=== PATIENT | male | born 1985 | race Caucasian/White ===

== ENCOUNTER → 2017-07-22 11:50 | Outpatient (CLI) | payer BC, SELFPAY ==
[2017-07-22 11:57] LABS: Adenovirus,PCR Not Detected (NotDetected); Bordetella Pertussis Not Detected (NotDetected); Chlamydophila Pneumoniae, PCR Not Detected (NotDetected); Coronavirus 229E Not Detected (NotDetected); Coronavirus NL63 Not Detected (NotDetected); Coronavirus OC43 Not Detected (NotDetected); Coronovirus HKU1,PCR Not Detected (NotDetected); Human Metapneumovirus Not Detected (NotDetected); Influenza A, PCR Not Detected (NotDetected); Influenza AH1, 2009 Not Detected (NotDetected); Influenza AH1, PCR Not Detected (NotDetected); Influenza AH3,PCR Not Detected (NotDetected); Influenza B, PCR Not Detected (NotDetected); Mycoplasma Pneumoniae, PCR Not Detected (NotDected); Parainfluenza 1, PCR Not Detected (NotDetected); Parainfluenza 2, PCR Not Detected (NotDetected); Parainfluenza 3, PCR Not Detected (NotDetected); Parainfluenza 4, PCR Not Detected (NotDetected); Respiratory Syncytial Virus Not Detected (NotDetected); Rhinovirus/Enterovirus Not Detected (NotDetected)
== END ==
PROVIDERS: PCP Internal Medicine Adolescent Medicine; Visit Provider Internal Medicine Adolescent Medicine
DX: R50.9 Fever, unspecified (principal)
CPT/HCPCS: 87486; 87581; 87633; 87798

== ENCOUNTER 2017-07-25 17:49 | Emergency (ER) | payer BC, SELFPAY ==
[2017-07-25 17:50] VITALS: BP 139/83; PULSE 109; RESP 18; TEMP 37; O2SAT 99; BMI 31.6
[2017-07-25 18:37] LABS: Basophils % 0.6 % (0.1-2.0); Eosinophils # 0.1 K/mm3 (0.0-0.4); Hematocrit 46.7 % (42.0-52.0); Lymphocytes # 1.7 K/mm3 (0.7-4.5); Lymphocytes % 26.8 K/mm3 (10-50); Mean Corpuscular HGB Conc 34.3 g/dL (31.8-35.4); Mean Corpuscular Hemoglobin 30.6 pg (27.0-31.2); Mean Platelet Volume 7.4 fl (7.4-10.4); Monocytes # 0.6 K/mm3 (0.1-1.0); Monocytes % 9.8 % (1.7-9.3); Neutrophils # 3.8 K/mm3 (1.8-7.8); Neutrophils % 60.8 % (37.0-80.0); Platelet Count 161 K/mm3 (142-424); Red Blood Count 5.25 M/mm3 (4.60-6.20); White Blood Count 6.3 K/mm3 (4.8-10.8)
--- NOTE | 2017-07-25 18:55 | HMH.EDABDPAI ---
ED Disposition Clinical Impression: Colitis Disposition: Home, Self-Care Condition on Discharge: Fair Instructions: DI for Acute Abdomen Additional Instructions: 1- soft diet . 2- observe 4-5 uop a day. 3- start abx 4- benty; prn abdominal pain. 5- follow up with Dr Hubbard in 2 days if not better. Prescriptions: Dicyclomine HCl [Bentyl 10mg capsule] 10 mg PO Q8HP PRN #21 capsule PRN Reason: Cramping Famotidine [Pepcid 20mg Tablet] 20 mg PO Q12 #20 tablet metroNIDAZOLE [Flagyl] 500 mg PO Q8 #21 tablet Referrals: Jeffrey Hubbard MD [Primary Care Provider] - - Critical Care Critical Care Time: No Attestation: On 07/25/17, the high probability of a clinically significant, sudden or life threatening deterioration of the following system(s) required my full and direct attention, intervention and personal management. The time I documented below is in addition to time spent performing reported procedures but includes the following listed in this critical care notation. Medical Decision Making - Medical Records Medical records reviewed: Yes: I reviewed the patient's medical records. Vital Signs: 07/25/17 17:50 Temperature 98.6 F Temperature Source Oral Pulse Rate [Right Radial] 109 H Respiratory Rate 18 Blood Pressure [Right Arm] 139/83 Blood Pressure Mean [Right Arm] 101 Blood Pressure Source [Right Arm] Automatic Cuff Blood Pressure Position [Right Arm] Sitting 02 Sat by Pulse Oximetry 99 Oxygen Delivery Method Room Air - Lab Data Lab Results 07/25/17 18:25: WBC 6.3, RBC 5.25, Hgb 16.0, Hct 46.7, MCV 89.0, MCH 30.6, MCHC 34.3, RDW 12.0, Plt Count 161, MPV 7.4, Neut % (Auto) 60.8, Lymph % (Auto) 26.8, [place] % (Auto) 9.8 H, Eos % (Auto) 2.0, Baso % (Auto) 0.6, Neut # (Auto) 3.8, Lymph # (Auto) 1.7, [place] # (Auto) 0.6, Eos # (Auto) 0.1, Baso # (Auto) 0.0 07/25/17 18:25: Sodium 142, Potassium 3.5, Chloride 103, Carbon Dioxide 29, Anion Gap 13.5, BUN 11, Creatinine 0.93, Estimated Creat Clear 194, Estimated GFR 95, Est GFR ( Amer) 115, Glucose 98, Calcium 9.1, Total Bilirubin 0.4, Direct Bilirubin 0.1, AST 20, ALT 37, Alkaline Phosphatase 57, Total Creatine Kinase 37 L, CK-MB (CK-2) < 0.5, CK-MB (CK-2) Rel Index 1.4, Troponin I < 0.02, Total Protein 8.1, Albumin 3.9, Globulin 4.2 H, Albumin/Globulin Ratio 0.9 L Result diagrams: 07/25/17 18:25 07/25/17 18:25 Orders (Tests/Meds): ED MEDICATIONS Discontinued Medications Generic Name Dose Route Start Last Admin Trade Name Caesar PRN Reason Stop Dose Admin Iopamidol 75 ml 07/25/17 19:20 07/25/17 19:21 [id number]; 75ml Vial IV 07/25/17 19:21 75 ml ONCE ONE Administration Sodium Chloride 10 ml 07/25/17 19:20 07/25/17 19:21 Rad-Saline Flush 10ml Syringe IV 07/25/17 19:21 10 ml ONCE ONE Administration ORDERS Category Date Time Status CT abdomen pelvis w con Routine Cat Scan 07/25/17 19:03 Taken - Vignesh Inquiry Pt receiving controlled substance: No Vignesh was queried for this patient: No Abdominal Pain HPI - General Chief Complaint: Abdominal Pain Stated Complaint: upper abd pain Mode of Arrival: Ambulatory Limitations: No Limitations Description of Symptoms (Recalled from ER Triage Doc. by RN): epigastric pain tested negative for flu on at Dr. hubbard's office - History of Present Illness HPI narrative: This 32 years old white male with no significant past medical history. He developed fever and vomiting 4 days ago. Seen by his primary care physician and tested negative for influenza. Then the fever has broke but he continued to have nausea and vomiting. He stopped vomiting today but he continues to have a epigastric pain is worse with swallowing eating. He denies having diarrhea. MD complaint: abdominal pain Onset (ago): day(s) (4 days .) Consistency: constant Location: diffuse Severity: mild Quality: dull Radiation: none Migration to: no migration Relieving factor
--- NOTE | 2017-07-25 18:58 | ED_ITS ---
ED Disposition Clinical Impression: Colitis Disposition: Home, Self-Care Condition on Discharge: Fair Instructions: DI for Acute Abdomen Additional Instructions: 1- soft diet . 2- observe 4-5 uop a day. 3- start abx 4- benty; prn abdominal pain. 5- follow up with Dr Hubbard in 2 days if not better. Prescriptions: Dicyclomine HCl [Bentyl 10mg capsule] 10 mg PO Q8HP PRN #21 capsule PRN Reason: Cramping Famotidine [Pepcid 20mg Tablet] 20 mg PO Q12 #20 tablet metroNIDAZOLE [Flagyl] 500 mg PO Q8 #21 tablet Referrals: Jeffrey Hubbard MD [Primary Care Provider] - - Critical Care Critical Care Time: No Attestation: On 07/25/17, the high probability of a clinically significant, sudden or life threatening deterioration of the following system(s) required my full and direct attention, intervention and personal management. The time I documented below is in addition to time spent performing reported procedures but includes the following listed in this critical care notation. Medical Decision Making - Medical Records Medical records reviewed: Yes: I reviewed the patient's medical records. Vital Signs: 07/25/17 17:50 Temperature 98.6 F Temperature Source Oral Pulse Rate [Right Radial] 109 H Respiratory Rate 18 Blood Pressure [Right Arm] 139/83 Blood Pressure Mean [Right Arm] 101 Blood Pressure Source [Right Arm] Automatic Cuff Blood Pressure Position [Right Arm] Sitting 02 Sat by Pulse Oximetry 99 Oxygen Delivery Method Room Air - Lab Data Lab Results 07/25/17 18:25: WBC 6.3, RBC 5.25, Hgb 16.0, Hct 46.7, MCV 89.0, MCH 30.6, MCHC 34.3, RDW 12.0, Plt Count 161, MPV 7.4, Neut % (Auto) 60.8, Lymph % (Auto) 26.8 , [place] % (Auto) 9.8 H, Eos % (Auto) 2.0, Baso % (Auto) 0.6, Neut # (Auto) 3.8, Lymph # (Auto) 1.7, [place] # (Auto) 0.6, Eos # (Auto) 0.1, Baso # (Auto) 0.0 07/25/17 18:25: Sodium 142, Potassium 3.5, Chloride 103, Carbon Dioxide 29, Anion Gap 13.5, BUN 11, Creatinine 0.93, Estimated Creat Clear 194, Estimated GFR 95, Est GFR ( Amer) 115, Glucose 98, Calcium 9.1, Total Bilirubin 0.4 , Direct Bilirubin 0.1, AST 20, ALT 37, Alkaline Phosphatase 57, Total Creatine Kinase 37 L, CK-MB (CK-2) < 0.5, CK-MB (CK-2) Rel Index 1.4, Troponin I < 0.02, Total Protein 8.1, Albumin 3.9, Globulin 4.2 H, Albumin/Globulin Ratio 0.9 L Result diagrams: 07/25/17 18:25 07/25/17 18:25 Orders (Tests/Meds): ED MEDICATIONS Discontinued Medications Generic Name Dose Route Start Last Admin Trade Name Freq PRN Reason Stop Dose Admin Iopamidol 75 ml 07/25/17 19:20 07/25/17 19:21 [id number]; 75ml Vial IV 07/25/17 19:21 75 ml ONCE ONE Administration Sodium Chloride 10 ml 07/25/17 19:20 07/25/17 19:21 Rad-Saline Flush 10ml Syringe IV 07/25/17 19:21 10 ml ONCE ONE Administration ORDERS Category Date Time Status CT abdomen pelvis w con Routine Cat Scan 07/25/17 19:03 Taken - Vignesh Inquiry Pt receiving controlled substance: No Vignesh was queried for this patient: No Abdominal Pain HPI - General Chief Complaint: Abdominal Pain Stated Complaint: upper abd pain Mode of Arrival: Ambulatory Limitations: No Limitations Description of Symptoms (Recalled from ER Triage Doc. by RN): epigastric pain tested negative for flu on at Dr. hubbard'
[2017-07-25 19:03] LABS: Alanine Aminotransferase 37 U/L (12-78); Albumin Level 3.9 gm/dL (3.4-5.0); Albumin/Globulin Ratio 0.9 (1.1-1.8); Alkaline Phosphatase 57 U/L (46-116); Anion Gap 13.5 mEq/L (5-15); Aspartate Amino Transferase 20 U/L (15-37); Bilirubin,Direct 0.1 mg/dL (0.0-0.2); Bilirubin,Total 0.4 mg/dL (0.2-1.0); Blood Urea Nitrogen 11 mg/dL (7-18); CKMB Relative Index 1.4 U/L (0-4.0); Calcium 9.1 mg/dL (8.5-10.1); Carbon Dioxide 29 mmol/L (21.0-32.0); Chloride 103 mmol/L (98-107); Creatine Kinase 37 U/L (39-308); Creatine Kinase MB < 0.5 mg/ml (0.0-3.6); Creatinine Clearance Estimated 194 mL/min (0-300); Creatinine,Serum 0.93 mg/dL (0.70-1.30); Estimated Glomerular Filt Rate 95 ml/min (>60); GFR (African American) 115 ML/MIN (>60); Globulin 4.2 gm/dl (1.3-3.2); Glucose 98 mg/dL (74-106); Potassium 3.5 mmoL/L (3.5-5.1); Sodium 142 mmol/L (136-145); Total Protein,Serum 8.1 gm/dL (6.4-8.2); Troponin I < 0.02 ng/ml (0.00-0.06)
--- NOTE | 2017-07-25 19:03 | CT_ITS ---
CT abdomen pelvis w con CLINICAL INDICATION: Epigastric pain with fever ITS.REASON: EPIGASTRIC PAIN X 3-4 DAYS ORDERING PHYSICIAN: Gillian Mancilla MD PATIENT AGE: 32 years COMPARISON: None TECHNIQUE: Axial images obtained with sagittal and coronal reformats. PROCEDURE: Oral Contrast: None IV Contrast: 75 mL's of [id number]. FINDINGS: Multiple small nodules in the left lung base laterally some of which are calcified and may be due to granulomas.. Follow-up may confirm stability. Decreased attenuation in the outer aspect of the left hepatic lobe and fissure for the ligamentum teres consistent with focal fatty infiltration. The spleen, adrenal glands, pancreas, gallbladder, kidneys, ureters, and urinary bladder have an unremarkable appearance. Unremarkable appendix. No evidence of intestinal obstruction, free air, or diverticulitis. No pelvic mass or focal inflammatory change. There are few small lymph nodes in the abdomen nonspecific. No acute bony findings. IMPRESSION: No acute abdominal or pelvic findings.
== END 2017-07-25 20:39 | disposition home or self-care (01) ==
PROVIDERS: Emergency Provider Emergency Medicine; PCP Internal Medicine Adolescent Medicine
DX: K52.9 Noninfective gastroenteritis and colitis, unspecified (principal)
CPT/HCPCS: 74177; 80053; 80076; 82550; 82553; 84484; 85025; 96365; 96374; 99284; Q9967

== ENCOUNTER 2018-12-12 17:00 | Outpatient (RCR) | payer BC, SELFPAY | END 2019-01-10 15:59 | disposition home or self-care (01) | LOC: PT.CARL 17:00 | PROVIDERS: Visit Provider Neurological Surgery | DX: G57.01 Lesion of sciatic nerve, right lower limb (principal) | CPT/HCPCS: 97010; 97012; 97014; 97110; 97140; 97163; G0283 ==

== ENCOUNTER 2021-04-29 22:39 | Emergency (ER) | payer BC, SELFPAY ==
[2021-04-29 22:40] VITALS: BP 148/85; PULSE 90; RESP 18; TEMP 36.9; O2SAT 99; BMI 36.5
--- NOTE | 2021-04-29 22:42 | HMH.EDSKAF ---
ED Disposition Clinical Impression: Urticaria Disposition: Home, Self-Care Condition on Discharge: Fair Instructions: DI for Food Allergy Additional Instructions: Please follow-up with your primary care physician in about 3 to 4 days. I recommend that you get an appointment with an annual campaign manager to test you for what you may have been allergic to. You will not be able to get allergy testing until you have not taken any medications for allergies for at least 2 weeks. Return to the emergency department if you feel worse in any way. Avoid nuts until you have been tested. You can take [id number] Benadryl 25 mg pills 1 to 2 pills every 4-6 hours as needed for your itching. Prescriptions: predniSONE [Deltasone 20mg tablet] 60 mg PO DAILY #15 tab Transmission Status: Pending to [facility] Referrals: Jeffrey Faye MD [Primary Care Provider] - - Critical Care Critical Care Time: No Attestation: On , the high probability of a clinically significant, sudden or life threatening deterioration of the following system(s) required my full and direct attention, intervention and personal management. The time I documented below is in addition to time spent performing reported procedures but includes the following listed in this critical care notation. Medical Decision Making - Medical Records Medical records reviewed: Yes: I reviewed the patient's medical records. - Vignesh Inquiry Pt receiving controlled substance: No Vital Signs: 04/29/21 22:40 Temperature 98.4 F Temperature Source Oral Pulse Rate [Right] 90 Respiratory Rate 18 Blood Pressure [Right Arm] 148/85 H Blood Pressure Mean [Right Arm] 106 02 Sat by Pulse Oximetry 99 Orders (Tests/Meds): ED MEDICATIONS Discontinued Medications Generic Name Dose Route Start Last Admin Trade Name Caesar PRN Reason Stop Dose Admin Diphenhydramine HCl 50 mg 04/29/21 22:50 04/29/21 22:54 Diphenhydramine 50mg/Ml Vial IM 04/29/21 22:51 50 mg ONCE ONE Administration Methylprednisolone Sodium Succinate 125 mg 04/29/21 22:49 04/29/21 22:54 Methylprednisolone Sod Succ 125mg Vial IM 04/29/21 22:50 125 mg ONCE ONE Administration Medical Decision Narrative: The patient was observed in the emergency department for approximately three quarters of an hour. Symptoms have improved after intramuscular steroids as well as Benadryl. I reexamined the patient and there is no evidence of airway obstruction or wheezing. The patient states that his itching has improved as well. I feel that the patient can be safely discharged home at this time. It appears that his symptoms are secondary to urticaria caused most likely by something he ingested. I suggested to the patient that he follow-up with his primary care physician to be referred for allergy testing. However I also advised him that he will not be able to undergo allergy testing while taking medications for his current allergies. The patient has expressed understanding and has agreed to do so. Skin/Abscess/FB HPI - General Stated complaint: rash from stomach up Time Seen by Provider: 04/29/21 22:42 Mode of Arrival: Ambulatory Source of Information: Patient - History of Present Illness HPI narrative: The patient presents to the emergency department complaining of a pruritic rash over the upper half of his body involving the trunk as well as both upper extremities. The patient states that he has not eaten anything unusual today. He does not feel short of breath. He has not had any syncopal or presyncopal symptoms. The patient states that he had a bag of trail mix earlier as well as some Tums which were . He denies any seafood, strawberries, pineapples or ibuprofen. He states that he is allergic to penicillins. The patient started noticing the symptoms about 7 PM today. MD complaint: rash - Related Data Previous Rx's Medication Instructions Recorded Dicyclomine HCl [Be
[2021-04-29 23:26] VITALS: BP 134/75; PULSE 81; RESP 18; TEMP 36.9; O2SAT 99
== END 2021-04-29 23:28 | disposition home or self-care (01) ==
PROVIDERS: Emergency Provider Emergency Medicine; PCP Internal Medicine Adolescent Medicine
DX: L50.0 Allergic urticaria (principal)
CPT/HCPCS: 96372; 99281

== ENCOUNTER → 2021-05-21 12:09 | Outpatient (CLI) | payer BC, SELFPAY ==
[2021-05-26 12:24] LABS: F001-IgE Egg White 0.82 kU/L (Class II); F002-IgE Milk <0.10 kU/L (Class 0); F003-IgE Codfish <0.10 kU/L (Class 0); F004-IgE Wheat 0.68 kU/L (Class II); F010-IgE Sesame Seed 0.46 kU/L (Class I); F013-IgE Peanut 0.34 kU/L (Class I); F014-IgE Soybean 0.12 kU/L (Class 0/I); F256-IgE Walnut <0.10 kU/L (Class 0); F338-IgE Scallop <0.10 kU/L (Class 0)
== END ==
PROVIDERS: Visit Provider Otolaryngology
DX: T78.40XA Allergy, unspecified, initial encounter (principal); J34.3 Hypertrophy of nasal turbinates; J34.2 Deviated nasal septum; H72.91 Unspecified perforation of tympanic membrane, right ear
CPT/HCPCS: 36415; 86003; 86008

== ENCOUNTER → 2021-09-12 09:42 | Outpatient (CLI) | payer BC, SELFPAY | PROVIDERS: PCP Internal Medicine Adolescent Medicine; Visit Provider Internal Medicine Adolescent Medicine | DX: J45.20 Mild intermittent asthma, uncomplicated (principal) | CPT/HCPCS: 94060; 94726; 94729 ==

== ENCOUNTER → 2021-11-14 13:33 | Outpatient (CLI) | payer BC, SELFPAY ==
--- NOTE | 2021-11-14 13:37 | CT_ITS ---
FINAL REPORT TECHNIQUE: Axial CT images were performed from the lung apices through the upper abdomen. High-resolution protocol was utilized with 1.25 mm slices at 10 mm intervals. Coronal reformats were submitted. This study was performed with techniques to keep radiation doses as low as reasonably achievable (ALARA). Individualized dose reduction techniques using automated exposure control or adjustment of mA and/or kV according to the patient's size were employed. CLINICAL HISTORY: WHEEZING, STRIDOR, hi-res chest, nonsmoker FINDINGS: There is no axillary adenopathy. There is no hilar or mediastinal mass or adenopathy. Heart size is normal. There is no pericardial or pleural effusion. Limited images of the upper abdomen are unremarkable. There is no evidence of emphysema or bronchiectasis. There is no significant interstitial fibrosis. There is a cluster of micronodules in the lateral segment of the right middle lobe measuring less than 3 mm. There are several other small bilateral pulmonary nodules measuring up to 5 mm. There are several calcified granulomas. IMPRESSION: No evidence of emphysema, bronchiectasis, or interstitial lung disease. Multiple small nodules with clustered small micronodules in the right middle lung, worrisome for mycobacterial/fungal diseases. Reviewed, Interpreted and Dictated by Jose Umanzor III, MD Transcribed by Tamra oFx Authenticated by Jose Umanzor III, MD on 11/14/2021 03:06:39 PM [facility]
== END ==
PROVIDERS: PCP Internal Medicine Adolescent Medicine; Visit Provider Internal Medicine Adolescent Medicine
DX: R06.2 Wheezing (principal); R06.1 Stridor
CPT/HCPCS: 71250

== ENCOUNTER → 2021-12-19 09:47 | Outpatient (CLI) | payer BC, SELFPAY | PROVIDERS: PCP Internal Medicine Adolescent Medicine | DX: R91.8 Other nonspecific abnormal finding of lung field (principal); J47.9 Bronchiectasis, uncomplicated; R06.2 Wheezing | CPT/HCPCS: 87116; 87206 ==

== ENCOUNTER → 2021-12-22 13:47 | Outpatient (CLI) | payer BC, SELFPAY ==
[2021-12-24 19:09] LABS: Cytoplasmic (C-ANCA) <1:20 titer (Neg:<1:20); Perinuclear (P-ANCA) <1:20 titer (Neg:<1:20)
[2022-01-01 00:08] LABS: D001-IgE D pteronyssinus 0.68 kU/L (Class II); D002-IgE D farinae 0.81 kU/L (Class II); E001-IgE Cat Dander 1.38 kU/L (Class II); E005-IgE Dog Dander 0.54 kU/L (Class I); G002-IgE Bermuda Grass 2.96 kU/L (Class III); I006-IgE Cockroach, German 0.35 kU/L (Class I); Immunoglobulin E, Total 8081 IU/mL (6-495); M001-IgE Penicillium chrysogen 4.93 kU/L (Class IV); M002-IgE Cladosporium herbarum 4.32 kU/L (Class IV); T003-IgE Common Silver Birch 8.64 kU/L (Class IV); T006-IgE Cedar, Mountain 0.55 kU/L (Class I); T008-IgE Elm, American 0.91 kU/L (Class II); T011-IgE Maple Leaf Sycamore 0.54 kU/L (Class I); T014-IgE Cottonwood 0.27 kU/L (Class 0/I); T015-IgE Ash, White 1.25 kU/L (Class II); T022-IgE Pecan, Hickory 0.48 kU/L (Class I); W011-IgE Thistle, Russian 0.31 kU/L (Class 0/I); W014-IgE Pigweed, Common 0.39 kU/L (Class I); W018-IgE Sheep Sorrel 0.57 kU/L (Class II)
== END ==
PROVIDERS: PCP Internal Medicine Adolescent Medicine; Visit Provider Internal Medicine
DX: R06.2 Wheezing (principal); R91.8 Other nonspecific abnormal finding of lung field; J47.9 Bronchiectasis, uncomplicated; D72.110 Idiopathic hypereosinophilic syndrome [IHES]; T78.40XA Allergy, unspecified, initial encounter
CPT/HCPCS: 36415; 82785; 86003; 86256; 87116; 87206

== ENCOUNTER → 2021-12-23 11:34 | Outpatient (CLI) | payer BC, SELFPAY | PROVIDERS: Visit Provider Internal Medicine | DX: R06.2 Wheezing (principal); R91.8 Other nonspecific abnormal finding of lung field; J47.9 Bronchiectasis, uncomplicated | CPT/HCPCS: 87116; 87206 ==

== ENCOUNTER → 2022-02-20 09:32 | Outpatient (CLI) | payer BC, SELFPAY | PROVIDERS: PCP Internal Medicine Adolescent Medicine; Visit Provider Internal Medicine | DX: J47.9 Bronchiectasis, uncomplicated (principal) | CPT/HCPCS: 87070; 87077; 87116; 87186; 87205; 87206 ==

== ENCOUNTER → 2022-03-05 08:59 | Outpatient (CLI) | payer BC, SELFPAY ==
--- NOTE | 2022-03-05 09:07 | CT_ITS ---
FINAL REPORT TECHNIQUE: Axial images through the abdomen and pelvis were performed without contrast.This study was performed with techniques to keep radiation doses as low as reasonably achievable, (ALARA). Individualized dose reduction techniques using automated exposure control or adjustment of mA and/or kV according to the patient's size were employed. CLINICAL HISTORY: UMBILICAL HERNIA,UMBILICAL DISCHARGE COMPARISON: 07/25/2017 FINDINGS: ABDOMEN: The lung bases straight multiple new nodules in the medial left lower lobe with presumed mucous plugging in this region. Small nodules in the lateral left lower lobe are stable. Findings are likely inflammatory. The heart size is normal. Limited images of the liver are unremarkable. The spleen is normal. No adrenal mass is identified. The aorta is normal in caliber. There is no significant free fluid or adenopathy. There is no nephrolithiasis. There is no hydronephrosis. No abdominal wall hernia is identified. PELVIS: The appendix is normal. The urinary bladder is unremarkable. There is no significant free fluid or adenopathy. IMPRESSION: No abdominal wall hernia identified. No acute findings. Reviewed, Interpreted and Dictated by Jose Umanzor III, MD Transcribed by Clarissa Olvera Authenticated and [facility]
== END ==
PROVIDERS: PCP Internal Medicine Adolescent Medicine; Visit Provider Internal Medicine Adolescent Medicine
DX: K42.9 Umbilical hernia without obstruction or gangrene (principal); R19.8 Other specified symptoms and signs involving the digestive system and abdomen
CPT/HCPCS: 74176

== ENCOUNTER 2024-08-24 17:00 | Outpatient (RCR) | payer BC, SELFPAY ==
--- NOTE | 2024-08-21 15:58 | HMH.PTOPEV ---
PT Outpatient Evaluation Rehab PT Outpatient Evaluation Start: 08/21/24 15:02 Freq: Status: Active Protocol: Document 08/21/24 15:02 PDESEROUX (Rec: 08/21/24 15:58 [email or web address] [id number]) E-signed By Michael Spaulding, PT Outpatient Therapy Subjective History Subjective History Pt. is a 39 year old male who presents to [facility] Outpatient Physical Therapy Services in [place] for the outpatient initial evaluation this date( 08/21/24) w/ c/o acute and constant lumbar and RLE P!, numbness, and weakness of insidious onset 3 weeks ago. Pt. c/o tightness across the lumbar spine the night before , but states that's a symptom that he's experienced chronically that usually improved after a night of sleeping. However, pt. reports waking up the next morning and not being able to get out of his bed. Pt. c/o RLE foot numbness after two minutes of sitting. Pt. also c/o bending or leaning forward worsen symptoms. Pt. denies having any diagnostic imaging for current complaint, however, previous chronic imaging of the lumbar spine indicated early stages of degeneration per pt. report. Pt. reports prescribed Diclofenac and Prednisone makes symptoms more tolerable. Pt. currently work at [employer]. Current medications include Diclofenac . PMH includes R-sided lumbar radiculopathy. New diagnosis of cancer in past 12 No months? Chief Complaint Pain,Spasms,Stiff,Gives out/ Unstable,Paresthesia,Weakness Symptom Type Ache,Sharp,Dull,Burning, Numbness,Tingling,Shooting Symptoms Relieved By Rest/Positioning,Ice, Prescription Meds Symptoms Aggravated By Sitting,Bending/Stooping, Physical Activity,Twisting, Lifting Prior Functional Limitations None Current Functional Limitations Reaching,Lifting,Sleeping, Standing,Sitting,Recreation Activity,Walking,Bending/ Stooping Symptom Description Constant but Variable,Activity Dependent Level of pain today (0-10) 2 Pain scale - at its best (0-10) 1 Pain scale - at its worst (0-10) 9 Lumbopelvic Eval Posture Thoracic Spine Posture Standing Position Neutral Lumbar Spine Posture Standing Position Neutral Assistive device Assistive Devices None / NA Gait Observation General Gait Pattern Observation No Deviations/Normal Palapation tenderness bilateral lumbar spinal tenderness Yes: L4/L5/S1 buttock tenderness Yes: R-sided piriformis mm. Lumbar/Sacral Palpation Findings Tenderness Lumbar/Sacral Palpation Overall Comment grade 4 +TTP Accessory Movement L-spine Vertebrae Accessory Movements [employer] [place],Right P/A that Elicit Symptoms [place] L3 right L4 right L5 right S1 right Range of Motion Lumbar Spine Active Flexion Range of 63 Motion (degrees) Lumbar Spine Active Extension Range of 19 Motion (degrees) Left Lumbar Spine Lateral Flexion Active 15 Range of Motion (degrees) Right Lumbar Spine Lateral Flexion 23 Active Range of Motion (degrees) Lumbar Spine ROM Limitations Soft Tissue Tightness,Muscle Weakness,Muscle Tone,Pain Manual Muscle Test Right Knee Extension Strength Grade 4- Good- Knee Flexion Strength Grade 4- Good- Hip Flexion Strength Grade 4- Good- Hip Abduction Strength Grade 4 Good Hip Adduction Strength Grade 4 Good Hip External Rotation Strength Grade 4- Good- Hip Internal Rotation Strength Grade 4- Good- Hip Extension Strength Grade 4 Good Gluteus Dino Strength Grade 4 Good Extensor Hallucis Longus Strength Grade 4 Good Ankle Dorsiflexion Strength Grade 4 Good Gastronemius/Soleus Strength Grade 4 Good DTR Rt Patellar 1+ Lt Patellar 2+ Rt Gastroc/Soleus 2+ Lt Gastroc/Soleus 2+ Altered Sensation Right Comment light touch sensation vocalized symmetrical grossly in BLEs Special Tests Lumbar Spine Screen Positive Forward Bending Test- Standing Positive Right Hip Piriformis Test Positive Right Sciatic Nerve Tension Test Positive Right Unilateral Straight Leg Raise (Lasegue) Positive Right Test Lumbar [place] Distraction Test/Manual Positive Traction Outpatient Therapy Assessment Impairments Problems/Impairmments Palpation Tenderness,Impaired Range of Motion,Impaired Strength,Impaired Transfers, Impaired Walking,Impaired Standing,Impaired Sitting, Impaired Driving,Impaired Lifting,Impaired Bending, Impaired Recreational Activities,Impaired Work Activities,Impaired Desk/ Computer Activities,Subjective C/O Pain,Impaired Self Care/ Self Management Prognosis Rehab Potential Good Comment w/ HEP compliancy Clinical Impression Consistent with Diagnosis Yes Consistent with lumbar radiculopathy, R Short Term Goals Number of Weeks 2 Decreased Palpation Tenderness Yes: grade 1-2 +TTP Decrease Subjective C/O Pain Yes: worse:11/04 Patient to be Ind w/ HEP Yes Assessor Goals Number of Weeks 4-6 Decreased Palpation Tenderness Yes: grade 1 +TTP Increase Range of Motion Yes: lumbar spine ROM WFL grossly Increase Strength Yes: 4+ to 5/5 RLE MMT scores grossly Improve Transfers Yes: sit to stand w/o difficulty Increase Ability to Walk Yes: 20' w/o difficulty Increase Ability to Stand Yes: 10' w/o difficulty Increase Ability to Sit Yes: 30' w/o difficulty Improve Ability to Bend Yes Improve Tolerance to Work Activities Yes Improve Oswestry Score Yes Decrease Subjective C/O Pain Yes: worse:-08/07 Patient to be Ind w/ Advanced HEP Yes Outpatient Therapy Plan of Care Treatment Plan May Include Therapeutic Exercise Including Home Yes Exercise Program Manual Therapy Techniques Yes Neuromuscular Re-education Yes Therapeutic Activities to Return to Yes Previous Functional/Work Level ADL/Self Care Education Yes Mechanical Traction Yes Dry Needling Yes Thermal Modalities Yes Electrical Stimulation Yes Ultrasound/Phonophoresis Yes Iontophoresis Yes Vasopneumatic Compression Pump Yes Massage Yes Eval/Re-Eval Yes Frequency Times per week 2 Duration Number of Weeks 4-6 Addendums This patient is a candidate for social No or vocational rehab? Patient/Guardian verbally acknowledges Yes understanding of treatment program and consents to further treatment? Patient/Guardian verbally acknowledges Yes understanding of diagnosis, prognosis and goals for treatment? Eval Complexity PT Charges 14085 - Low Complexity Shoulder/Elbow Eval Shoulder Objective Measurements Elbow Objective Measurements PHYSICIAN CERTIFICATION: I certify the specified therapy services for [facility] are required, authorized, and reviewed every 30 days.
== END 2024-08-24 23:59 | disposition home or self-care (01) ==
LOC: PT 17:00
PROVIDERS: PCP Internal Medicine Adolescent Medicine; Visit Provider Internal Medicine Adolescent Medicine
DX: M54.16 Radiculopathy, lumbar region (principal)
CPT/HCPCS: 97012; 97014; 97110; 97163; G0283

== ENCOUNTER 2024-09-04 17:00 | Outpatient (RCR) | payer BC, SELFPAY | END 2024-09-07 23:59 | disposition home or self-care (01) | LOC: PT 17:00 | PROVIDERS: PCP Internal Medicine Adolescent Medicine; Visit Provider Internal Medicine Adolescent Medicine | DX: M54.16 Radiculopathy, lumbar region (principal) | CPT/HCPCS: 97012; 97014; 97110; G0283 ==

== ENCOUNTER 2024-12-25 08:00 | Outpatient (RCR) | payer BC, SELFPAY ==
--- NOTE | 2024-12-13 08:56 | HMH.PTOPEV ---
PT Outpatient Evaluation Rehab PT Outpatient Evaluation Start: 12/13/24 08:01 Freq: Status: Active Protocol: Document 12/13/24 08:01 NGUYEN (Rec: 12/13/24 08:55 PDESERADRIANNEX [id number]) E-signed By Michael Spaulding, PT Outpatient Therapy Subjective History Subjective History Pt. is a 39 year old male who presents to [facility] Outpatient Physical Therapy Services in [place] for the outpatient initial evaluation this date(12/13/24) w / c/o acute on sub-acute and constant R-sided cervical and posterior thoracic/shldr. region P!, stiffness, and burning w/ intermittent RUE hand numbness of insidious onset that has been progressively worsening over the last month. Pt. c/o initial onset of symptoms in July or August of this year, denies trauma nor injury to initial onset of symptoms nor worsening of symptoms over the last month. Pt. c/o symptoms being worse in the morning time, vocalizes I can move my neck more without pain, as the day goes on. Pt. vocalizes symptoms disrupt daily activities at home and at work. Pt. denies having any diagnostic imaging at this time for current complaint. Pt. denies injections for current complaint. Pt. reports having no overall symptom relief w/ self stretches at home nor prescribed muscle relaxer. Pt. does not have a return date to MD at this time. Current medications unremarkable. PMH includes R-sided lumbar radiculopathy. New diagnosis of No cancer in past 12 months? Chief Complaint Pain,Spasms,Stiff,Clicks,Paresthesia Symptom Type Ache,Sharp,Stabbing,Burning,Numbness,Tingling,Shooting Symptoms Relieved By Rest/Positioning,Ice Symptoms Aggravated Bending/Stooping,Physical Activity,Twisting,Lifting By Prior Functional None Limitations Current Functional Reaching,Lifting,Housework,Dressing,Desk Work/Reading, Limitations Driving,Sleeping,Recreation Activity,Bending/Stooping Symptom Description Constant but Variable,Activity Dependent Level of pain today 2 (0-10) Pain scale - at its 1 best (0-10) Pain scale - at its 6 worst (0-10) Cervical Eval Palpation Cervical Muscles R Cervical Paraspinal,R Suboccipital,R CT Junction,R Upper Trapezius,R Thoracic Paraspinals Cervical/Thoracic Tenderness,Trigger Point,Muscle Guarding Palpation Findings Posture Head/C-Spine Posture Neutral Position Sitting Position Head/C-Spine Posture Neutral Position Standing Position Flexibility Deficits Upper Trapezius (R) Severe Tightness Muscle Length Levaetor Scapulae (R) Severe Tightness Muscle Length Scalene Group Muscle (R) Severe Tightness Length Sternocleidomastoid (R) Severe Tightness Muscle Length Pectoralis Major (R) Severe Tightness Muscle Length Pectoralis Minor (R) Severe Tightness Muscle Length Passive Joint Mobility Cervical PIVM Dec: R OA L OA R AA L AA R C2/3 L C2/3 R C3/4 L C3/4 R C4/5 L C4/5 R C5/6 L C5/6 R C6/7 L C6/7 R C7/T1 L C7/T1 AROM Cervical Spine 24 Extension Active Range of Motion ( degrees) Cervical Spine 58 Flexion Active Range of Motion (degrees) Cervical Spine Right 13 Lateral Flexion Active Range of Motion (degrees) Cervical Spine Left 34 Lateral Flexion Active Range of Motion (degrees) Cervical Spine Right 33 Rotation Active Range of Motion ( degrees) Cervical Spine Left 63 Rotation Active Range of Motion ( degrees) MMT Right Deltoid (C5) 3+ Fair+ Biceps Brachii 4+ Good+ Strength Grade Wrist Extension 4+ Good+ Strength Grade Triceps Brachii 4+ Good+ Strength Grade Wrist Flexion 4+ Good+ Strength Grade Extensor Pollicis 4+ Good+ Longus Strength Grade Finger Abduction 4+ Good+ Strength Grade DTR Rt Biceps 1+ Lt Biceps 1+ Rt Brachioradialis 1+ Lt Brachioradialis 1+ Rt Triceps 1+ Lt Triceps 1+ Altered Sensation Bilateral Comment pt. vocalized symmetrical light touch sensation Special Test C-Spine Foraminal Positive Right Compression ( [place]) Test C-spine Verterbral Central P/A [place],Right P/A [place] Accessory Movements that Elicit Symptoms C-Spine Foraminal Positive Distraction Test C-Spine Compression Positive Right Test Outpatient Therapy Assessment Impairments Problems/ Palpation Tenderness,Impaired Range of Motion,Impaired Impairmments Strength,Impaired Driving,Impaired Lifting,Impaired Dressing,Impaired Shower/Bathing,Impaired Household Care,Impaired Bending,Impaired Work Activities,Impaired Desk/Computer Activities,Subjective C/O Pain,Impaired Self Care/Self Management Prognosis Rehab Potential Good Comment w/ HEP compliancy Clinical Impression Consistent with Yes Diagnosis Consistent with R-sided upper trap strain Additional details: s/s and examination associated w/ R-sided cervical radiculopathy Short Term Goals Number of Weeks 2 Decreased Palpation Yes: grade 2 +TTP Tenderness Decrease Subjective Yes: worse:5/10 C/O Pain Patient to be Ind w/ Yes HEP Supervisor [employer] Goals Number of Weeks 4-6 Decreased Palpation Yes: grade 1 +TTP Tenderness Increase Range of Yes: cervical spine AROM WFL grossly Motion Increase Strength Yes: 4+ to 5/5 RUE shldr. anita-scapular MMT scores Increase Ability to Yes Drive/Ride in Car Restore Ability to Yes Lift Objects Overhead Improve Ability to Yes Dress Self Improve Ability to Yes Shower/Bathe Self Improve Ability For Yes Household Care Improve Tolerance to Yes Work Activities Improve Tolerance to Yes Desk/Computer Activities Improve Neck Yes Disability Index Score Decrease Subjective Yes: worse:2-3/10 C/O Pain Patient to be Ind w/ Yes Advanced HEP Outpatient Therapy Plan of Care Treatment Plan May Include Therapeutic Exercise Yes Including Home Exercise Program Manual Therapy Yes Techniques Neuromuscular Re- Yes education Therapeutic Yes Activities to Return to Previous Functional/Work Level ADL/Self Care Yes Education Mechanical Traction Yes Dry Needling Yes Thermal Modalities Yes Electrical Yes Stimulation Ultrasound/ Yes Phonophoresis Iontophoresis Yes Vasopneumatic Yes Compression Pump Massage Yes Eval/Re-Eval Yes Frequency Times per week 2 Duration Number of Weeks 4-6 Addendums This patient is a No candidate for social or vocational rehab ? Patient/Guardian Yes verbally acknowledges understanding of treatment program and consents to further treatment? Patient/Guardian Yes verbally acknowledges understanding of diagnosis, prognosis and goals for treatment? Eval Complexity PT Charges 56052 - Low Complexity Shoulder/Elbow Eval Shoulder Objective Measurements Elbow Objective Measurements PHYSICIAN CERTIFICATION: I certify the specified therapy services for [facility] are required, authorized, and reviewed every 30 days.
== END 2024-12-25 23:59 | disposition home or self-care (01) ==
LOC: PT.CARL 08:00
PROVIDERS: Visit Provider Internal Medicine Adolescent Medicine
DX: S46.811A Strain of other muscles, fascia and tendons at shoulder and upper arm level, right arm, initial encounter (principal); M54.16 Radiculopathy, lumbar region; X58.XXXA Exposure to other specified factors, initial encounter
CPT/HCPCS: 20560; 97012; 97014; 97032; 97110; 97112; 97161; G0283

== ENCOUNTER → 2025-01-18 15:00 | Outpatient (RCR) | payer BC, SELFPAY | LOC: PT.CARL 12-27 16:05 | PROVIDERS: Visit Provider Internal Medicine Adolescent Medicine | DX: S46.811A Strain of other muscles, fascia and tendons at shoulder and upper arm level, right arm, initial encounter (principal) | CPT/HCPCS: 20560; 97014; 97110; 97112; G0283 ==